=== PATIENT | male | born 2000 | race Caucasian/White ===

== ENCOUNTER 2023-10-13 16:57 | Emergency (ER) | payer MEDICAID ==
[~2023-10-13] VITALS: Ht 175.3 cm; Wt 58.2 kg
[~2023-10-13 16:57] MED LIST: ARIP5TAB12 PO; REM15T PO; [UNRECOGNIZED DRUG - CODE]
[2023-10-13] MEDS: LORazepam 1 MG tablet PO ONE (18:11)
[2023-10-13] MEDS ORDERED: HYDR-3686 PO (18:14)
[2023-10-13] MEDS ORDERED: LORA-268 PO ×2 (18:14→18:15)
[2023-10-13 18:22] VITALS: BP 121/83; PULSE 71; RESP 16; TEMP 98.1; O2SAT 100
== END 2023-10-13 18:23 | disposition home or self-care (01) ==
LOC: ER 16:57
DX: F41.9 Anxiety disorder, unspecified (principal); Z88.0 Allergy status to penicillin; Z79.899 Other long term (current) drug therapy
CPT/HCPCS: 93005; 99283

== ENCOUNTER 2024-09-29 02:31 | Emergency (ER) | payer MEDICAID ==
[~2024-09-29] VITALS: Ht 175.3 cm; Wt 72.7 kg
[~2024-09-29 02:31] MED LIST changes: +LORA-268 PO
[2024-09-29 02:33] VITALS: BP 137/84; PULSE 108; RESP 16; TEMP 98; O2SAT 98
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
== END 2024-09-29 03:17 ==
LOC: ER 02:31
DX: S80.212A Abrasion, left knee, initial encounter (principal); S00.31XA Abrasion of nose, initial encounter; F10.129 Alcohol abuse with intoxication, unspecified; M54.2 Cervicalgia; V89.2XXA Person injured in unspecified motor-vehicle accident, traffic, initial encounter; Y93.89 Activity, other specified; Y92.89 Other specified places as the place of occurrence of the external cause; Y99.8 Other external cause status; Y90.9 Presence of alcohol in blood, level not specified
CPT/HCPCS: 99283; L0172